=== PATIENT | female | born 1995 | race Caucasian/White ===

== ENCOUNTER 2023-09-13 09:12 | Emergency (ER) | payer MEDICAID, OTHER ==
[~2023-09-13] VITALS: Ht 167.6 cm; Wt 82.4 kg
[2023-09-13 10:02] VITALS: BP 125/82; PULSE 79; RESP 18; O2SAT 99
[2023-09-13] MEDS: LIDOCAINE 1% HCL (LOCAL ANESTH.) INJ 20ML MDV IJ ONE (10:19)
== END 2023-09-13 10:35 | disposition home or self-care (01) ==
LOC: ER 09:12
DX: S61.101A Unspecified open wound of right thumb with damage to nail, initial encounter (principal); X58.XXXA Exposure to other specified factors, initial encounter; Y93.89 Activity, other specified; Y92.89 Other specified places as the place of occurrence of the external cause; Y99.8 Other external cause status
CPT/HCPCS: 11730; 73140; 99284; J2001